=== PATIENT | male | born 2000 | race African-American/Black ===

== ENCOUNTER 2025-01-08 15:55 | Emergency (ER) | payer SELFPAY ==
[~2025-01-08] VITALS: Ht 188 cm; Wt 95.0 kg
[2025-01-08 16:05] VITALS: O2SAT 99
[2025-01-08] MEDS: ACETAMINOPHEN 325MG TABLET PO ONE (16:37)
[2025-01-08] MEDS ORDERED: IBUP-2028 MT (16:48)
[2025-01-08 17:02] VITALS: BP 119/70; PULSE 79; RESP 18; TEMP 36.9; O2SAT 98
== END 2025-01-08 17:03 | disposition home or self-care (01) ==
LOC: ER 15:55
DX: M25.571 Pain in right ankle and joints of right foot (principal); Z79.899 Other long term (current) drug therapy
CPT/HCPCS: 99284; 73610; 73630; A6449